=== PATIENT | male | born 1980 | race Hispanic/Latino ===

== ENCOUNTER 2017-12-06 23:47 | Emergency (ER) | payer BC ==
[2017-12-06 23:59] VITALS: TEMP 98
--- NOTE | 2017-12-07 00:52 | ED PDOC ---
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 Patient states that he thinks the ball jammed his left thumb but he is not 100% sure. He states that he has no problem his thumb at the proximal joint but cannot bend it at the interphalangeal joint. Past Medical History Reviewed: Historical Data, Nursing Documentation, Vital Signs Vital Signs: Last Vital Signs Temp 98.0 F 12/06/17 23:55 Pulse 92 H 12/06/17 23:55 Resp 16 12/06/17 23:55 BP 143/81 12/06/17 23:55 Pulse Ox 97 12/06/17 23:55 - Medical History PMH: No Chronic Diseases - Surgical History Other surgeries: surg hx of 5th digit surgery. right neck cyst removal. hernia surgery - Family History Family History: States: Unknown Family Hx - Social History Current smoker - smoking cessation education provided: No Alcohol: Social Drugs: Denies - Home Medications Home Medications: Ambulatory Orders Medication Instructions Recorded Ibuprofen [Motrin Tab] 600 mg PO Q6 #30 tab 12/07/17 - Allergies Allergies/Adverse Reactions: Allergies Allergy/AdvReac Type Severity Reaction Status Date / Time Penicillins Allergy ANGIOEDEMA Verified 12/06/17 23:55 Review of Systems ROS Statement: Except As Marked, All Systems Reviewed And Found Negative Constitutional: Negative for: Fever Musculoskeletal: Positive for: Other (left thumb pain) Physical Exam - Reviewed Nursing Documentation Reviewed: Yes Vital Signs Reviewed: Yes - Physical Exam Appears: Positive for: Well, Non-toxic, No Acute Distress Head Exam: Positive for: ATRAUMATIC Skin: Positive for: Normal Color, Warm, DRY Eye Exam: Positive for: Normal appearance ENT: Positive for: Normal ENT Inspection Extremity: Positive for: Other (left thumb is eccymotic, sensation is intact). Negative for: Normal ROM (unable to bend at the IP joint, but able to bend at the PIP joint, able to impose all fingers) - ECG O2 Sat by Pulse Oximetry: 97 (RA) Pulse Ox Interpretation: Normal Medical Decision Making Medical Decision Making: Time: --00:22 Impression: --Jammed Thumb; Less likely fracture or dislocation Plan: --Motrin 600mg PO --ICE --Hand Left Thumb X-ray Reassess Xray shows sublaxation, less likely fracture, patient put in thumb spica splint and referred to ortho hand. Scribe Attestation: Documented by Narinder Smith acting as a scribe for Bertin Daniels MD. Provider Attestation: All medical record entries made by the Scribe were at my direction and personally dictated by me. I have reviewed the chart and agree that the record accurately reflects my personal performance of the history, physical exam, medical decision making, and the department course for this patient. I have also personally directed, reviewed, and agree with the discharge instructions and disposition. Disposition - Clinical Impression Clinical Impression: Subluxation of finger - Disposition Referrals: Carl Sommers MD [Medical Doctor] - Disposition: Routine/Home Disposition Time: 02:53 Condition: GOOD Prescriptions: Ibuprofen [Motrin Tab] 600 mg PO Q6 #30 tab Instructions: Finger Sprain (DC), Jammed Finger Forms: [employer] (Sami)
[2017-12-07 03:08] VITALS: BP 136/84; PULSE 82; RESP 18; O2SAT 99
--- NOTE | 2017-12-07 13:51 | RAD ---
PROCEDURE: Left Thumb radiographs. HISTORY: jammed thumb playing goalie during soccer COMPARISON: None. TECHNIQUE: AP radiograph of the left hand, as well as spot oblique and lateral images of thumb were obtained. FINDINGS: LEFT THUMB: Intra-articular fracture base of 1st distal phalanx with dorsal displacement of the largest (dorsal) portion of thumb. Likely comminution with small fragments seen at palmar aspect distal end 1st proximal phalanx. This is seen in the lateral view. JOINTS: Remaining joint spaces and articular surfaces of the hand are preserved. SOFT TISSUES: Normal. OTHER FINDINGS: None. IMPRESSION: Displaced intra-articular fracture base of 1st distal phalanx. Dorsal displacement of largest fragment of distal phalanx. Comminution noted. Preliminary interpretation of this examination was reported by [facility] at time. There is discordance of this report with the preliminary interpretation.
== END 2017-12-07 02:58 | disposition home or self-care (01) ==
LOC: H.ER 23:47
DX: S62.502A Fracture of unspecified phalanx of left thumb, initial encounter for closed fracture (principal); W50.0XXA Accidental hit or strike by another person, initial encounter; Y93.66 Activity, soccer; Z88.0 Allergy status to penicillin